=== PATIENT | male | born 1975 | race American Indian/Alaskan Native ===

== ENCOUNTER 2020-02-18 05:54 | Emergency (ER) | payer SELFPAY ==
[2020-02-18 06:39] LABS: Basophils % (Auto) 0.4 % (0.0-1.8); Eosinophils # (Auto) 0.2 K/mm3 (0.0-0.4); Eosinophils % (Auto) 1.8 % (0.0-4.3); Hematocrit 41.9 % (35.5-45.6); Hemoglobin 14.1 gm/dl (11.8-15.2); Mean Corpuscular HGB Conc 34 % (32-34); Mean Corpuscular Volume 91 fl (84-94); Monocytes # (Auto) 0.9 K/mm3 (0.0-0.8); Monocytes % (Auto) 10.5 % (0.0-7.3); Platelet Count 253 K/mm3 (140-440); Red Cell Distribution Width 14.2 % (13.2-15.2)
[2020-02-18 07:19] VITALS: BP 115/81
[2020-02-18 07:23] LABS: BUN/Creatinine Ratio 8; Blood Urea Nitrogen 7 mg/dL (9-20); Calcium 8.9 mg/dL (8.4-10.2); Hemolysis Index 7
--- NOTE | 2020-02-18 07:37 | Emergency Department Report ---
ED General Adult HPI - General Chief complaint: Weakness Stated complaint: WEAKNESS Time Seen by Provider: 02/18/20 07:08 Source: patient, EMS Mode of arrival: Stretcher Limitations: No Limitations - History of Present Illness Initial comments: The patient presents to the emergency department with a chief complaint of feeling tired and weak for the last 12 to 24 hours. Patient states that he is staying in a hotel for the last week and is under a lot of stress with the issue he has with the government. Patient denies any chest pain, shortness breath, headache. Patient also denies any slurred speech, facial droop, focal weakness. -: Sudden Severity scale (0 -10): 0 Consistency: constant Improves with: none Worsens with: none Associated Symptoms: denies other symptoms Treatments Prior to Arrival: none - Related Data Previous Rx's Medication Instructions Recorded Last Taken Type Hydrocortisone [Hydrocortisone 20 gm TP TID #1 oint...g. 02/18/20 Unknown Rx 2.5% OINT] Permethrin 5% [Acticin 5% CREAM] 1 applicatio TP ONCE #2 tube 02/18/20 Unknown Rx Allergies Allergy/AdvReac Type Severity Reaction Status Date / Time prednisone Allergy Hives Verified 02/18/20 06:13 ED Review of Systems ROS: Stated complaint: WEAKNESS Other details as noted in HPI Comment: All other systems reviewed and negative Constitutional: other (fatigue). denies: chills, fever Eyes: denies: eye pain, eye discharge, vision change ENT: denies: ear pain, throat pain Respiratory: denies: cough, shortness of breath, wheezing Cardiovascular: denies: chest pain, palpitations Endocrine: no symptoms reported Gastrointestinal: denies: abdominal pain, nausea, diarrhea Genitourinary: denies: urgency, dysuria Musculoskeletal: denies: back pain, joint swelling, arthralgia Skin: rash. denies: lesions Neurological: denies: headache, weakness, paresthesias Psychiatric: denies: anxiety, depression Hematological/Lymphatic: denies: easy bleeding, easy bruising ED Past Medical Hx - Past Medical History Previous Medical History?: Yes Hx Asthma: Yes Additional medical history: IBS, High Cholesterol - Surgical History Past Surgical History?: No - Social History Smoking Status: Current Every Day Smoker Substance Use Type: None - Medications Home Medications: Home Medications Medication Instructions Recorded Confirmed Last Taken Type Hydrocortisone [Hydrocortisone 20 gm TP TID #1 oint...g. 02/18/20 Unknown Rx 2.5% OINT] Permethrin 5% [Acticin 5% CREAM] 1 applicatio TP ONCE #2 tube 02/18/20 Unknown Rx ED Physical Exam - General Limitations: No Limitations General appearance: alert, in no apparent distress - Head Head exam: Present: atraumatic, normocephalic - Eye Eye exam: Present: normal appearance, PERRL, EOMI - ENT ENT exam: Present: mucous membranes moist - Neck Neck exam: Present: normal inspection - Respiratory Respiratory exam: Present: normal lung sounds bilaterally. Absent: respiratory distress, wheezes, rales - Cardiovascular Cardiovascular Exam: Present: regular rate, normal rhythm. Absent: systolic murmur, diastolic murmur, rubs, gallop - GI/Abdominal GI/Abdominal exam: Present: soft, normal bowel sounds. Absent: distended, tenderness - Rectal Rectal exam: Present: deferred - Extremities Exam Extremities exam: Present: normal inspection - Back Exam Back exam: Present: normal inspection - Neurological Exam Neurological exam: Present: alert, oriented X3, CN II-XII intact, normal gait, reflexes normal, other (Normal [id number], normal [id number], normal rapid hand movements, normal gait no ataxia). Absent: motor sensory deficit - Psychiatric Psychiatric exam: Present: normal affect, normal mood - Skin Skin exam: Present: warm, dry, intact, normal color, rash (Patient has a rash to the right scapula and right upper extremity consistent with bedbugs. Patient also has a rash of the decubital fossa of the right and left forearm consistent with atopic dermatitis) ED Course Vital Signs 02/18/20 02/18/20 06:11 07:18 Temperature 98 F Pulse Rate 65 59 L Respiratory 18 18 Rate Blood Pressure 95/62 115/81 [Left] O2 Sat by Pulse 100 99 Oximetry ED Medical Decision Making - Lab Data Result diagrams: 02/18/20 06:29 02/18/20 06:29 - Medical Decision Making discussed results and plan of care with patient Critical care attestation.: If time is entered above; I have spent that time in minutes in the direct care of this critically ill patient, excluding procedure time. ED Disposition Clinical Impression: Fatigue, Atopic contact dermatitis, Bed bug bite Disposition: DC- TO HOME OR SELFCARE Is pt being admited?: No Does the pt Need Aspirin: No Condition: Stable Instructions: Contact Dermatitis (ED), Fatigue (ED) Additional Instructions: return if worse Prescriptions: Permethrin 5% [Acticin 5% CREAM] 1 applicatio TP ONCE #2 tube Hydrocortisone [Hydrocortisone 2.5% OINT] 20 gm TP TID #1 oint...g. Referrals: [facility] [Provider Group] - 3-5 Days [facility] [Provider Group] - 3-5 Days Time of Disposition: 07:35
== END 2020-02-18 07:45 | disposition home or self-care (01) ==
LOC: EDBD → ED 05:54
DX: L25.9 Unspecified contact dermatitis, unspecified cause (principal); R53.83 Other fatigue; F17.200 Nicotine dependence, unspecified, uncomplicated; E78.5 Hyperlipidemia, unspecified
CPT/HCPCS: 36415; 80048; 85025; 99283